=== PATIENT | male | born 1945 | race African-American/Black ===

== ENCOUNTER 2016-09-18 12:28 | Inpatient (IN) | payer OTHER ==
[~2016-09-18] VITALS: Ht 177.8 cm; Wt 93.0 kg
[~2016-09-18 12:28] MED LIST: ATORVASTATIN CA10 MG PO; CORTIZONE-10 PL57 GM TP; ECOTRIN325 MG PO; Ecotrin PO; FLUOXETINE HCL20 MG PO; HYGROTON25 MG PO; Habitrol,Nicoderm CQ TD; LIPITOR80 MG PO; LOPRESSOR50 MG PO; LOSARTAN POTASS50 MG PO; Lopressor PO; NORVASC10 MG PO; PERCOCET 5/31 TABLET PO; PLAVIX75 MG PO; PRINZIDE 20-251 EACH PO; PROZAC20 MG PO; SERTRALINE HCL25 MG PO; VITAMIN D1000 INTUN PO; ZOLOFT100 M1 PO
[2016-09-18 13:14] LABS: HEMATOCRIT 41.6 % (38.0-50.0); MCH 31.6 PG (29.0-34.0); MCHC 34.6 G/DL (30.0-36.0); MCV 91.2 FL (86-99); MEAN PLAT.VOLUME 10.2 uM^3 (9.0-12.4); PLATELET COUNT 159 K/uL (156-360); RBC DIS.WIDTH-CV 12.3 % (11.8-14.6); RBC DIS.WIDTH-SD 40.7 % (39-53); RED BLOOD COUNT 4.56 M/uL (4.00-5.50); WHITE BLOOD COUNT 11.8 K/uL (4.1-10.2)
[2016-09-18 13:28] LABS: CHLORIDE 108 mEq/L (99-109); POTASSIUM 4.2 mEq/L (3.7-5.4); SODIUM 140 mEq/L (136-147)
[2016-09-18 13:29] LABS: GLUCOSE 111 mg/dL (70-99)
[2016-09-18 13:31] LABS: ANION GAP 7 MEQ/L (2-14)
[2016-09-18 13:33] LABS: GFR ESTIMATE (CALCULATED) 32 mL/min/
[2016-09-18 13:34] LABS: TROP-I INTERPRETATION NEGATIVE; TROPONIN-I < 0.01 ng/mL (0.0-0.30); UREA NITROGEN (BUN) 29 mg/dL (9-23)
[2016-09-18 21:13] LABS: TROP-I INTERPRETATION NEGATIVE; TROPONIN-I < 0.01 ng/mL (0.0-0.30)
[2016-09-18 21:25] LABS: D-DIMER ELISA 3.53 mg/L FEU (< 0.57)
[2016-09-18] MEDS ORDERED: LOPRESSOR100 M1 PO (21:57)
[2016-09-18] MEDS ORDERED: LO-DOSE ASPIRIN81 M1 PO (21:57)
[2016-09-18] MEDS ORDERED: ZOLOFT50 MG PO (21:58)
[2016-09-18] MEDS ORDERED: TYLENOL EXTRA500 MG PO (21:58)
[2016-09-18] MEDS ORDERED: HYZAAR 100-21 TABLET PO (21:58)
[2016-09-18] MEDS ORDERED: LOTRIMIN AF24 GM TP (21:59)
[2016-09-18] MEDS ORDERED: CLARITIN,ALAVAR10 MG PO (22:00)
[2016-09-18] MEDS ORDERED: VISINE15 ML BOTH EYES (22:00)
[2016-09-18] MEDS ORDERED: GOLD BOND MED56.6 GM TP (22:01)
[2016-09-18] MEDS ORDERED: ALKA-SELTZER P1 EAC6 PO (22:01)
[2016-09-19 04:03] LABS: TROP-I INTERPRETATION NEGATIVE; TROPONIN-I < 0.01 ng/mL (0.0-0.30)
[2016-09-19 10:21] VITALS: BP 122/78
[2016-09-19 10:57] LABS: TROP-I INTERPRETATION NEGATIVE; TROPONIN-I < 0.01 ng/mL (0.0-0.30)
[2016-09-19 15:58] VITALS: BP 137/80
[2016-09-19 19:24] VITALS: BP 160/103
[2016-09-19 20:14] VITALS: BP 127/74
[2016-09-19 20:17] VITALS: BP 121/76
[2016-09-20 00:48] VITALS: BP 111/73
[2016-09-20 04:46] VITALS: BP 111/69
[2016-09-20 06:53] LABS: ANION GAP 7 MEQ/L (2-14); CHLORIDE 105 MEQ/L (99-109); GFR ESTIMATE (CALCULATED) 28 mL/min/; GLUCOSE 116 mg/dL (70-99); POTASSIUM 4.1 MEQ/L (3.7-5.4); SAMPLE HEMOLYSIS CHECK 0; SAMPLE ICTERIC CHECK 0; SAMPLE LIPEMIA CHECK 0; SODIUM 136 MEQ/L (136-147); UREA NITROGEN (BUN) 39 mg/dL (9-23)
[2016-09-20 06:58] LABS: HEMATOCRIT 36.4 % (38.0-50.0); MCH 31.4 PG (29.0-34.0); MCHC 33.5 G/DL (30.0-36.0); MCV 93.6 FL (86-99); MEAN PLAT.VOLUME 10.7 uM^3 (9.0-12.4); PLATELET COUNT 132 K/uL (156-360); RBC DIS.WIDTH-CV 12.5 % (11.8-14.6); RBC DIS.WIDTH-SD 42.3 % (39-53); RED BLOOD COUNT 3.89 M/uL (4.00-5.50); WHITE BLOOD COUNT 9.4 K/uL (4.1-10.2)
[2016-09-20 08:16] VITALS: BP 115/66
[2016-09-20 12:43] VITALS: BP 120/81
[2016-09-20] MEDS ORDERED: SPIRIVA RESPIMAT4 GM IH (13:04)
[2016-09-20] MEDS ORDERED: ADVAIR HFA120 INHALA IH (13:04)
[2016-09-20] MEDS ORDERED: XARELTO1 EACH PO (13:04)
[2016-09-20] MEDS ORDERED: CEFTIN500 MG PO (13:04)
[2016-09-20] MEDS ORDERED: AZITHROMYCIN500 M1 PO (13:04)
[2016-09-20] MEDS ORDERED: OXYCONTIN10 MG PO (13:04)
== END 2016-09-20 15:18 | disposition home or self-care (01) | DRG 176 ==
LOC: EME 12:28 → EDOF 09-19 00:05 → 5WEST 09-19 07:12
PROVIDERS: Emergency Medicine; Hospitalist
DX: I26.99 Other pulmonary embolism without acute cor pulmonale (principal); J44.0 Chronic obstructive pulmonary disease with (acute) lower respiratory infection; J20.9 Acute bronchitis, unspecified; J44.1 Chronic obstructive pulmonary disease with (acute) exacerbation; R91.8 Other nonspecific abnormal finding of lung field; T17.900A Unspecified foreign body in respiratory tract, part unspecified causing asphyxiation, initial encounter; J98.11 Atelectasis; I12.9 Hypertensive chronic kidney disease with stage 1 through stage 4 chronic kidney disease, or unspecified chronic kidney disease; N18.3 Chronic kidney disease, stage 3 (moderate); I25.10 Atherosclerotic heart disease of native coronary artery without angina pectoris; F32.9 Major depressive disorder, single episode, unspecified; F17.290 Nicotine dependence, other tobacco product, uncomplicated; Z95.5 Presence of coronary angioplasty implant and graft
CPT/HCPCS: 71020; 71100; 71250; 78582; 80048; 84484; 85027; 85379; 87070; 87205; 93005; 93970; 94640; 94640 76; 94760; 94799; 99202; 99281; 99285; A9540; A9567; J0696; J1170; J1650; J2270; J2405; J7050

== ENCOUNTER → 2016-10-28 | Outpatient (CLI) | payer OTHER ==
[~2016-10-28] MED LIST changes: +ADVAIR HFA120 INHALA IH; +ALKA-SELTZER P1 EAC6 PO; +AZITHROMYCIN500 M1 PO; +CEFTIN500 MG PO; +CLARITIN,ALAVAR10 MG PO; +GOLD BOND MED56.6 GM TP; +GOLD BOND MEDI283 G1 TP; +HYZAAR 100-21 TABLET PO; +LO-DOSE ASPIRIN81 M1 PO; +LOPRESSOR100 M1 PO; +LOTRIMIN AF24 GM TP; +OXYCODONE HCL10 MG PO; +OXYCONTIN10 MG PO; +SPIRIVA RESPIMAT4 GM IH; +SPIRIVA1 INHALATI IH; +TYLENOL EXTRA500 MG PO; +VISINE15 ML BOTH EYES; +XARELTO1 EACH PO; +XARELTO20 MG PO; +ZOLOFT50 MG PO
== END | disposition home or self-care (01) ==
LOC: RAD 10-21 08:30
DX: R91.1 Solitary pulmonary nodule (principal)
CPT/HCPCS: 71250

== ENCOUNTER → 2016-10-30 | Outpatient (CLI) | payer OTHER ==
[~2016-10-30] VITALS: Ht 177.8 cm; Wt 90.7 kg
[2016-10-30 15:27] LABS: HEMATOCRIT 38.4 % (38.0-50.0); MCH 30.4 PG (29.0-34.0); MCHC 32.8 G/DL (30.0-36.0); MCV 92.8 FL (86-99); MEAN PLAT.VOLUME 10.1 uM^3 (9.0-12.4); PLATELET COUNT 143 K/uL (156-360); RBC DIS.WIDTH-CV 13.3 % (11.8-14.6); RBC DIS.WIDTH-SD 45.2 % (39-53); RED BLOOD COUNT 4.14 M/uL (4.00-5.50); WHITE BLOOD COUNT 7.3 K/uL (4.1-10.2)
[2016-10-30 15:38] LABS: PTT 28.9 (25-32)
== END | disposition home or self-care (01) ==
LOC: AMB 13:55
PROVIDERS: Internal Medicine Pulmonary Disease
PROC: 0BBG8ZX Excision of Left Upper Lung Lobe, Via Natural or Artificial Opening Endoscopic, Diagnostic (ICD-10-PCS; principal; 2016-10-30)
DX: R91.1 Solitary pulmonary nodule (principal); J84.10 Pulmonary fibrosis, unspecified; Z86.711 Personal history of pulmonary embolism; Z87.891 Personal history of nicotine dependence
CPT/HCPCS: 71010; 76001; 85027; 85610; 85730; 86850; 86900; 86901; 87070; 87116; 87205; 87206; 88108; 88305; J0330; J0360; J1100; J2405; J3010

== ENCOUNTER 2016-11-19 16:44 | Observation (INO) | payer OTHER ==
[~2016-11-19] VITALS: Ht 177.8 cm; Wt 92.5 kg
[2016-11-19 17:27] LABS: HEMATOCRIT 42.6 % (38.0-50.0); MCH 31.4 PG (29.0-34.0); MCHC 33.6 G/DL (30.0-36.0); MCV 93.4 FL (86-99); MEAN PLAT.VOLUME 10.4 uM^3 (9.0-12.4); PLATELET COUNT 153 K/uL (156-360); RBC DIS.WIDTH-CV 13.2 % (11.8-14.6); RBC DIS.WIDTH-SD 43.5 % (39-53); RED BLOOD COUNT 4.56 M/uL (4.00-5.50); WHITE BLOOD COUNT 7.4 K/uL (4.1-10.2)
[2016-11-19 17:39] LABS: CHLORIDE 108 mEq/L (99-109); POTASSIUM 4.4 mEq/L (3.7-5.4); SODIUM 142 mEq/L (136-147)
[2016-11-19 17:41] LABS: GLUCOSE 75 mg/dL (70-99)
[2016-11-19 17:43] LABS: ANION GAP 9 MEQ/L (2-14)
[2016-11-19 17:45] LABS: GFR ESTIMATE (CALCULATED) 33 mL/min/; TROP-I INTERPRETATION NEGATIVE; TROPONIN-I < 0.01 ng/mL (0.0-0.30)
[2016-11-19 17:46] LABS: UREA NITROGEN (BUN) 45 mg/dL (9-23)
[2016-11-19 23:40] VITALS: BP 144/84
[2016-11-20 00:07] LABS: TROP-I INTERPRETATION NEGATIVE; TROPONIN-I < 0.01 ng/mL (0.0-0.30)
[2016-11-20 03:55] VITALS: BP 158/86
[2016-11-20 07:13] LABS: TROP-I INTERPRETATION NEGATIVE; TROPONIN-I < 0.01 ng/mL (0.0-0.30)
[2016-11-20 08:55] VITALS: BP 166/91
== END 2016-11-20 11:48 | disposition home or self-care (01) ==
LOC: EME 16:44 → 5WEST 22:41 → EDOF 22:41 → 5WEST 23:31
PROVIDERS: Hospitalist
DX: J95.811 Postprocedural pneumothorax (principal); R91.1 Solitary pulmonary nodule; I25.10 Atherosclerotic heart disease of native coronary artery without angina pectoris; Z95.5 Presence of coronary angioplasty implant and graft; I12.9 Hypertensive chronic kidney disease with stage 1 through stage 4 chronic kidney disease, or unspecified chronic kidney disease; N18.3 Chronic kidney disease, stage 3 (moderate); F32.9 Major depressive disorder, single episode, unspecified; Z86.711 Personal history of pulmonary embolism; Z79.4 Long term (current) use of insulin
CPT/HCPCS: 71020; 80048; 84484; 85027; 93005; 94640; 99281; 99285; G0378; J1170; J3010; J7030; J7050

== ENCOUNTER → 2016-11-19 | Outpatient (CLI) | payer OTHER ==
[~2016-11-19] MED LIST changes: +LO-DOSE ASPIRIN81 M2 PO
== END | disposition home or self-care (01) ==
LOC: OPR 08:47 → EDSTATUS 09:00 → OPR 09:00
PROC: 0BBG3ZX Excision of Left Upper Lung Lobe, Percutaneous Approach, Diagnostic (ICD-10-PCS; principal; 2016-11-19)
DX: C34.12 Malignant neoplasm of upper lobe, left bronchus or lung (principal); F17.200 Nicotine dependence, unspecified, uncomplicated; J44.9 Chronic obstructive pulmonary disease, unspecified; Z79.82 Long term (current) use of aspirin; Z79.02 Long term (current) use of antithrombotics/antiplatelets; Z79.01 Long term (current) use of anticoagulants; I10 Essential (primary) hypertension; I25.10 Atherosclerotic heart disease of native coronary artery without angina pectoris; Z98.61 Coronary angioplasty status; K21.9 Gastro-esophageal reflux disease without esophagitis; Z83.3 Family history of diabetes mellitus; Z82.49 Family history of ischemic heart disease and other diseases of the circulatory system
CPT/HCPCS: 71010; 77012; 88305; 88341 TC; 88342 TC; J3010

== ENCOUNTER 2016-12-27 11:44 | Day surgery (SDC) | payer OTHER ==
[~2016-12-27] VITALS: Ht 177.8 cm; Wt 88.5 kg
[2016-12-27 12:17] VITALS: BP 137/69
[2016-12-27 12:23] LABS: EOSINOPHIL COUNT 0.3 K/uL (0-0.3); HEMATOCRIT 43.8 % (38.0-50.0); IMMATURE GRANULOCYTE (%) 0.3 % (0.0-0.7); INSTRUMENT ABS NEUTROPHIL CT 4.1 K/uL; LYMPHOCYTE COUNT 1.9 K/uL (1.0-2.8); MCH 30.7 PG (29.0-34.0); MCHC 33.3 G/DL (30.0-36.0); MCV 92.2 FL (86-99); MEAN PLAT.VOLUME 9.9 uM^3 (9.0-12.4); MONOCYTE (%) 8.7 % (3-12); MONOCYTE COUNT 0.6 K/uL (0-0.8); NEUTROPHIL (%) 59.7 % (45-76); NEUTROPHIL COUNT 4.1 K/uL (1.8-6.4); PLATELET COUNT 160 K/uL (156-360); RBC DIS.WIDTH-CV 11.9 % (11.8-14.6); RBC DIS.WIDTH-SD 40.3 % (39-53); RED BLOOD COUNT 4.75 M/uL (4.00-5.50); WHITE BLOOD COUNT 6.9 K/uL (4.1-10.2)
[2016-12-27 12:33] LABS: INTER. NORMALIZED RATIO 0.9; PROTHROMBIN TIME 9.6 (9.2-11.2)
[2016-12-27 12:39] LABS: CHLORIDE 108 mEq/L (99-109); POTASSIUM 3.8 mEq/L (3.7-5.4); SODIUM 142 mEq/L (136-147)
[2016-12-27 12:41] LABS: GLUCOSE 88 mg/dL (70-99)
[2016-12-27 12:42] LABS: ANION GAP 10 MEQ/L (2-14)
[2016-12-27 12:43] LABS: TOTAL BILIRUBIN 0.7 mg/dL (0.0-1.0)
[2016-12-27 12:44] LABS: ALKALINE PHOSPHATASE 63 IU/L (3-129)
[2016-12-27 12:45] LABS: GFR ESTIMATE (CALCULATED) 28 mL/min/
[2016-12-27 12:46] LABS: UREA NITROGEN (BUN) 39 mg/dL (9-23)
[2016-12-27 16:30] VITALS: BP 162/83
[2016-12-27 17:15] VITALS: BP 165/82
== END 2016-12-27 17:30 | disposition home or self-care (01) ==
LOC: SDC 11:44
PROVIDERS: Thoracic Surgery (Cardiothoracic Vascular Surgery)
PROC: 07B74ZX Excision of Thorax Lymphatic, Percutaneous Endoscopic Approach, Diagnostic (ICD-10-PCS; principal; 2016-12-27)
DX: C34.12 Malignant neoplasm of upper lobe, left bronchus or lung (principal); F17.290 Nicotine dependence, other tobacco product, uncomplicated; I25.10 Atherosclerotic heart disease of native coronary artery without angina pectoris; J44.9 Chronic obstructive pulmonary disease, unspecified; I12.9 Hypertensive chronic kidney disease with stage 1 through stage 4 chronic kidney disease, or unspecified chronic kidney disease; N18.9 Chronic kidney disease, unspecified; Z86.711 Personal history of pulmonary embolism; Z79.82 Long term (current) use of aspirin; Z79.01 Long term (current) use of anticoagulants
CPT/HCPCS: 71010; 80053; 85025; 85610; 86850; 86900; 86901; 88305; J0690; J1100; J2250; J2405; J2710; J3010

== ENCOUNTER → 2016-12-31 | Outpatient (CLI) | payer OTHER ==
[2016-12-31 12:22] LABS: BASE EXCESS -1.3 mEq/L (-3 to +3); BICARBONATE 23.7 mEq/L (22-26); METHEMOGLOBIN 1.1 % (0-1.5); PCO2 40 mm Hg (35-45); PO2 77 mm Hg (80-100); pH 7.38 (7.35-7.45)
[2016-12-31 12:24] LABS: COMMENTS - BLOOD GASES +C; FI02 21 %; SITE LB; TOTAL RESP RATE 20 resp/min
== END | disposition home or self-care (01) ==
LOC: RES 11:44
PROVIDERS: Thoracic Surgery (Cardiothoracic Vascular Surgery)
DX: C34.90 Malignant neoplasm of unspecified part of unspecified bronchus or lung (principal)
CPT/HCPCS: 36600; 82803

== ENCOUNTER 2017-01-10 07:28 | Inpatient (IN) | payer OTHER ==
[~2017-01-10] VITALS: Ht 177.8 cm; Wt 92.8 kg
[2017-01-10 08:02] VITALS: BP 138/83
[2017-01-10 09:26] LABS: INTER. NORMALIZED RATIO 0.9; PROTHROMBIN TIME 9.6 (9.2-11.2)
[2017-01-10 16:30] VITALS: BP 143/95
[2017-01-10 17:00] VITALS: BP 149/76
[2017-01-10 17:43] LABS: METH RESISTANT S AUREUS PCR NEGATIVE (NEGATIVE)
[2017-01-10 17:45] LABS: PROBE CHECK PASS; SPECIMEN PROCESSING CONTROL PASS
[2017-01-10 20:00] VITALS: BP 134/97
[2017-01-11] VITALS (13 sets, daily range): BP systolic 104–147; BP diastolic 64–97
[2017-01-11 06:29] LABS: ANION GAP 6 MEQ/L (2-14); CHLORIDE 109 MEQ/L (99-109); GFR ESTIMATE (CALCULATED) 29 mL/min/; GLUCOSE 129 mg/dL (70-99); POTASSIUM 4.7 MEQ/L (3.7-5.4); SAMPLE HEMOLYSIS CHECK 0; SAMPLE ICTERIC CHECK 0; SAMPLE LIPEMIA CHECK 0; SODIUM 137 MEQ/L (136-147); UREA NITROGEN (BUN) 31 mg/dL (9-23)
[2017-01-11 06:40] LABS: HEMATOCRIT 37.9 % (38.0-50.0); MCH 30.8 PG (29.0-34.0); MCHC 32.2 G/DL (30.0-36.0); MCV 95.7 FL (86-99); MEAN PLAT.VOLUME 10.2 uM^3 (9.0-12.4); PLATELET COUNT 167 K/uL (156-360); RBC DIS.WIDTH-SD 42.1 % (39-53); RED BLOOD COUNT 3.96 M/uL (4.00-5.50)
[2017-01-11 06:52] LABS: WHITE BLOOD COUNT 12.6 K/uL (4.1-10.2)
[2017-01-12] VITALS (15 sets, daily range): BP systolic 104–144; BP diastolic 72–99
[2017-01-12 06:01] LABS: HEMATOCRIT 37.2 % (38.0-50.0); MCH 30.7 PG (29.0-34.0); MCHC 32.5 G/DL (30.0-36.0); MCV 94.4 FL (86-99); MEAN PLAT.VOLUME 10.2 uM^3 (9.0-12.4); PLATELET COUNT 146 K/uL (156-360); RBC DIS.WIDTH-CV 11.9 % (11.8-14.6); RBC DIS.WIDTH-SD 40.8 % (39-53); RED BLOOD COUNT 3.94 M/uL (4.00-5.50); WHITE BLOOD COUNT 13.5 K/uL (4.1-10.2)
[2017-01-13] VITALS (7 sets, daily range): BP systolic 94–148; BP diastolic 65–92
[2017-01-13 06:07] LABS: HEMATOCRIT 33.1 % (38.0-50.0); MCH 30.7 PG (29.0-34.0); MCHC 33.2 G/DL (30.0-36.0); MCV 92.5 FL (86-99); MEAN PLAT.VOLUME 10.6 uM^3 (9.0-12.4); PLATELET COUNT 137 K/uL (156-360); RBC DIS.WIDTH-CV 11.7 % (11.8-14.6); RBC DIS.WIDTH-SD 39.7 % (39-53); RED BLOOD COUNT 3.58 M/uL (4.00-5.50); WHITE BLOOD COUNT 12.9 K/uL (4.1-10.2)
[2017-01-13 06:35] LABS: ANION GAP 6 MEQ/L (2-14); CHLORIDE 108 MEQ/L (99-109); GFR ESTIMATE (CALCULATED) 36 mL/min/; GLUCOSE 193 mg/dL (70-99); POTASSIUM 4.2 MEQ/L (3.7-5.4); SAMPLE HEMOLYSIS CHECK 0; SAMPLE ICTERIC CHECK 0; SAMPLE LIPEMIA CHECK 0; SODIUM 136 MEQ/L (136-147); UREA NITROGEN (BUN) 27 mg/dL (9-23)
[2017-01-13 11:56] LABS: BASE EXCESS -4.5 mEq/L (-3 to +3); BICARBONATE 21.1 mEq/L (22-26); CARBOXY HGB 2.3 % (0-5); COMMENTS - BLOOD GASES NEG A+C+; METHEMOGLOBIN 1.5 % (0-1.5); PCO2 40 mm Hg (35-45); PO2 87 mm Hg (80-100); SITE RR; pH 7.33 (7.35-7.45)
[2017-01-13 11:57] LABS: DEVICE HHFNC; O2 FLOW 30 L/MIN; TOTAL RESP RATE 24 resp/min
[2017-01-13 11:58] LABS: FI02 30 %
[2017-01-14] VITALS (14 sets, daily range): BP systolic 100–194; BP diastolic 72–116
[2017-01-14 09:32] LABS: EOSINOPHIL (%) 0 % (0-5); IMMATURE GRANULOCYTE (%) 0.7 % (0.0-0.7); IMMATURE GRANULOCYTE COUNT 0.1 K/uL; INSTRUMENT ABS NEUTROPHIL CT 14.1 K/uL; LYMPHOCYTE COUNT 1.1 K/uL (1.0-2.8); MCH 30.4 PG (29.0-34.0); MCHC 32.1 G/DL (30.0-36.0); MCV 94.8 FL (86-99); MONOCYTE (%) 7.3 % (3-12); MONOCYTE COUNT 1.2 K/uL (0-0.8); NEUTROPHIL (%) 85.3 % (45-76); NEUTROPHIL COUNT 14.1 K/uL (1.8-6.4); NRBC (%) 0.2 /100 WBC (0-0); RBC DIS.WIDTH-CV 11.9 % (11.8-14.6); RBC DIS.WIDTH-SD 40.9 % (39-53); RED BLOOD COUNT 4.01 M/uL (4.00-5.50); WHITE BLOOD COUNT 16.5 K/uL (4.1-10.2)
[2017-01-14 09:50] LABS: ANION GAP 7 MEQ/L (2-14); CHLORIDE 107 MEQ/L (99-109); GFR ESTIMATE (CALCULATED) 41 mL/min/; POTASSIUM 4.4 MEQ/L (3.7-5.4); SAMPLE HEMOLYSIS CHECK 0; SAMPLE ICTERIC CHECK 0; SAMPLE LIPEMIA CHECK 0; SODIUM 139 MEQ/L (136-147); UREA NITROGEN (BUN) 36 mg/dL (9-23)
[2017-01-14 09:51] LABS: GLUCOSE 113 mg/dL (70-99)
[2017-01-14 09:59] LABS: PLATELET COUNT 188 K/uL (156-360)
[2017-01-15] VITALS (13 sets, daily range): BP systolic 108–163; BP diastolic 63–105
[2017-01-15 05:07] LABS: HEMATOCRIT 32.3 % (38.0-50.0); MCHC 32.5 G/DL (30.0-36.0); MCV 92.3 FL (86-99); MEAN PLAT.VOLUME 10.7 uM^3 (9.0-12.4); NRBC (%) 0.2 /100 WBC (0-0); PLATELET COUNT 174 K/uL (156-360); RBC DIS.WIDTH-CV 11.7 % (11.8-14.6); RBC DIS.WIDTH-SD 39.4 % (39-53); WHITE BLOOD COUNT 13.8 K/uL (4.1-10.2)
[2017-01-15 05:19] LABS: CHLORIDE 107 mEq/L (99-109); POTASSIUM 4.9 mEq/L (3.7-5.4); SODIUM 140 mEq/L (136-147)
[2017-01-15 05:20] LABS: GLUCOSE 112 mg/dL (70-99)
[2017-01-15 05:22] LABS: ANION GAP 9 MEQ/L (2-14)
[2017-01-15 05:24] LABS: GFR ESTIMATE (CALCULATED) 36 mL/min/
[2017-01-15 05:25] LABS: UREA NITROGEN (BUN) 42 mg/dL (9-23)
[2017-01-16] VITALS (8 sets, daily range): BP systolic 125–166; BP diastolic 86–113
[2017-01-17 03:30] VITALS: BP 136/84
[2017-01-17 05:43] LABS: HEMATOCRIT 32.2 % (38.0-50.0); MCH 30.8 PG (29.0-34.0); MCHC 32.9 G/DL (30.0-36.0); MCV 93.6 FL (86-99); MEAN PLAT.VOLUME 10.2 uM^3 (9.0-12.4); NRBC (%) 0.5 /100 WBC (0-0); PLATELET COUNT 190 K/uL (156-360); RBC DIS.WIDTH-CV 11.9 % (11.8-14.6); RBC DIS.WIDTH-SD 40.5 % (39-53); RED BLOOD COUNT 3.44 M/uL (4.00-5.50); WHITE BLOOD COUNT 15.3 K/uL (4.1-10.2)
[2017-01-17 06:13] LABS: ANION GAP 5 MEQ/L (2-14); CHLORIDE 106 MEQ/L (99-109); GFR ESTIMATE (CALCULATED) 35 mL/min/; GLUCOSE 104 mg/dL (70-99); POTASSIUM 4.9 MEQ/L (3.7-5.4); SAMPLE HEMOLYSIS CHECK 0; SAMPLE ICTERIC CHECK 0; SAMPLE LIPEMIA CHECK 0; SODIUM 142 MEQ/L (136-147); UREA NITROGEN (BUN) 55 mg/dL (9-23)
[2017-01-17 07:45] VITALS: BP 147/100
[2017-01-17 12:00] VITALS: BP 130/88
[2017-01-17 16:20] VITALS: BP 108/86
[2017-01-17] MEDS ORDERED: Ocean Nasal 0.65% BOTH NARES (17:43)
[2017-01-17] MEDS ORDERED: XARELTO15 MG PO (17:43)
[2017-01-17] MEDS ORDERED: MUCINEX600 MG PO (17:43)
[2017-01-17] MEDS ORDERED: OXYCODONE HCL5 MG PO (17:43)
[2017-01-17] MEDS ORDERED: ADVAIR HFA120 INHALA IH (17:43)
== END 2017-01-17 18:26 | disposition home or self-care (01) | DRG 163 ==
LOC: 2SOUTH → 4WEST 16:10
PROVIDERS: Surgery; Thoracic Surgery (Cardiothoracic Vascular Surgery)
DX: C34.12 Malignant neoplasm of upper lobe, left bronchus or lung (principal); I12.9 Hypertensive chronic kidney disease with stage 1 through stage 4 chronic kidney disease, or unspecified chronic kidney disease; N18.4 Chronic kidney disease, stage 4 (severe); J44.1 Chronic obstructive pulmonary disease with (acute) exacerbation; T17.890A Other foreign object in other parts of respiratory tract causing asphyxiation, initial encounter; J95.821 Acute postprocedural respiratory failure; Z86.711 Personal history of pulmonary embolism; J98.11 Atelectasis; I82.622 Acute embolism and thrombosis of deep veins of left upper extremity; J95.89 Other postprocedural complications and disorders of respiratory system, not elsewhere classified; E11.22 Type 2 diabetes mellitus with diabetic chronic kidney disease; I25.10 Atherosclerotic heart disease of native coronary artery without angina pectoris; J44.9 Chronic obstructive pulmonary disease, unspecified; E78.5 Hyperlipidemia, unspecified; F17.210 Nicotine dependence, cigarettes, uncomplicated; Z95.5 Presence of coronary angioplasty implant and graft; Z96.652 Presence of left artificial knee joint
CPT/HCPCS: 36600; 71010; 71020; 80048; 82803; 85025; 85027; 85610; 86900; 86901; 86920; 87641; 88305; 88309; 88341 TC; 88342 TC; 93931; 94010; 94640; 94640 76; 94667; 94668; 94760; 94799; 97530 GO; 97530 GP; 99202; J0330; J0456; J0690; J1100; J1170; J1644; J1940; J2250; J2405; J2710; J2920; J3010; J7030; J7040; J7050; S0020

== ENCOUNTER 2017-08-19 21:19 | Observation (INO) | payer OTHER ==
[~2017-08-19] VITALS: Ht 177.8 cm; Wt 80.5 kg
[~2017-08-19 21:19] MED LIST changes: +COMPAZINE10 MG PO; +MUCINEX600 MG PO; +OMEPRAZOLE40 M1 PO; +OXYCODONE HCL5 MG PO; +Ocean Nasal 0.65% BOTH NARES; +XARELTO15 MG PO; +ZOFRAN8 MG PO
[2017-08-19 21:47] LABS: HEMATOCRIT 43.8 % (38.0-50.0); MCH 33.2 PG (29.0-34.0); MCHC 34.5 G/DL (30.0-36.0); MCV 96.3 FL (86-99); MEAN PLAT.VOLUME 10.4 uM^3 (9.0-12.4); PLATELET COUNT 150 K/uL (156-360); RBC DIS.WIDTH-CV 12.3 % (11.8-14.6); RBC DIS.WIDTH-SD 44.1 % (39-53); RED BLOOD COUNT 4.55 M/uL (4.00-5.50); WHITE BLOOD COUNT 6.8 K/uL (4.1-10.2)
[2017-08-19 21:57] LABS: CHLORIDE 108 mEq/L (99-109); POTASSIUM 4.3 mEq/L (3.7-5.4); SODIUM 141 mEq/L (136-147)
[2017-08-19 22:00] LABS: GLUCOSE 102 mg/dL (70-99)
[2017-08-19 22:01] LABS: ANION GAP 10 MEQ/L (2-14)
[2017-08-19 22:02] LABS: TOTAL BILIRUBIN 0.7 mg/dL (0.0-1.0)
[2017-08-19 22:03] LABS: ALKALINE PHOSPHATASE 94 IU/L (3-129); GFR ESTIMATE (CALCULATED) 38 mL/min/
[2017-08-19 22:04] LABS: UREA NITROGEN (BUN) 24 mg/dL (9-23)
[2017-08-20 03:52] LABS: HEMATOCRIT 37.3 % (38.0-50.0); MCV 95.6 FL (86-99)
[2017-08-20 05:00] VITALS: BP 102/70
[2017-08-20 09:40] VITALS: BP 102/65
[2017-08-20 09:47] LABS: HEMATOCRIT 38.3 % (38.0-50.0); MCV 95.8 FL (86-99)
[2017-08-20 10:11] LABS: ALKALINE PHOSPHATASE 74 IU/L (3-129); ANION GAP 4 MEQ/L (2-14); CHLORIDE 109 MEQ/L (99-109); GFR ESTIMATE (CALCULATED) 36 mL/min/; GLUCOSE 82 mg/dL (70-99); POTASSIUM 4.4 MEQ/L (3.7-5.4); SAMPLE HEMOLYSIS CHECK 0; SAMPLE ICTERIC CHECK 0; SAMPLE LIPEMIA CHECK 0; SODIUM 140 MEQ/L (136-147); TOTAL BILIRUBIN 0.7 MG/DL (0.0-1.0); UREA NITROGEN (BUN) 22 mg/dL (9-23)
[2017-08-20 11:50] VITALS: BP 111/72
[2017-08-20] MEDS ORDERED: OXYCODONE HCL10 MG PO (14:52)
[2017-08-20] MEDS ORDERED: ADVAIR HFA120 INHALA IH (14:54)
[2017-08-20] MEDS ORDERED: PROAIR HFA8.5 GM IH (14:54)
[2017-08-20] MEDS ORDERED: LO-DOSE ASPIRIN81 M2 PO (14:55)
[2017-08-20 15:27] LABS: HEMATOCRIT 40.3 % (38.0-50.0)
[2017-08-20 16:30] VITALS: BP 125/74
[2017-08-20 20:14] VITALS: BP 132/85
[2017-08-21 00:21] VITALS: BP 131/85
[2017-08-21 00:24] LABS: HEMATOCRIT 36.7 % (38.0-50.0); MCV 96.1 FL (86-99)
[2017-08-21 04:51] VITALS: BP 123/85
[2017-08-21 08:06] LABS: HEMATOCRIT 38.5 % (38.0-50.0); MCH 32.5 PG (29.0-34.0); MCHC 33.8 G/DL (30.0-36.0); MCV 96.3 FL (86-99); MEAN PLAT.VOLUME 10.1 uM^3 (9.0-12.4); PLATELET COUNT 121 K/uL (156-360); RBC DIS.WIDTH-CV 12.4 % (11.8-14.6); RBC DIS.WIDTH-SD 44.1 % (39-53); WHITE BLOOD COUNT 5.9 K/uL (4.1-10.2)
[2017-08-21 08:29] LABS: ANION GAP 2 MEQ/L (2-14); CHLORIDE 113 MEQ/L (99-109); GFR ESTIMATE (CALCULATED) 38 mL/min/; GLUCOSE 95 mg/dL (70-99); POTASSIUM 4.7 MEQ/L (3.7-5.4); SAMPLE HEMOLYSIS CHECK 0; SAMPLE ICTERIC CHECK 0; SAMPLE LIPEMIA CHECK 0; SODIUM 140 MEQ/L (136-147); UREA NITROGEN (BUN) 29 mg/dL (9-23)
[2017-08-21 09:11] VITALS: BP 143/84
== END 2017-08-21 12:07 | disposition home or self-care (01) ==
LOC: EME 21:19 → EDOF 08-20 02:39 → 5WEST 08-20 02:39 → ENRESERV 08-20 02:57 → 5WEST 08-20 03:58 → ENPENDDIS 08-21 → 5WEST 08-21 12:07
PROVIDERS: Internal Medicine; Nurse Practitioner Adult Health
DX: K62.5 Hemorrhage of anus and rectum (principal); I71.4 Abdominal aortic aneurysm, without rupture; C34.10 Malignant neoplasm of upper lobe, unspecified bronchus or lung; I12.9 Hypertensive chronic kidney disease with stage 1 through stage 4 chronic kidney disease, or unspecified chronic kidney disease; N18.3 Chronic kidney disease, stage 3 (moderate); Z86.711 Personal history of pulmonary embolism; I25.10 Atherosclerotic heart disease of native coronary artery without angina pectoris; Z95.5 Presence of coronary angioplasty implant and graft; J44.9 Chronic obstructive pulmonary disease, unspecified; E78.00 Pure hypercholesterolemia, unspecified; R60.0 Localized edema; Z90.2 Acquired absence of lung [part of]; F17.290 Nicotine dependence, other tobacco product, uncomplicated; Z79.01 Long term (current) use of anticoagulants; Z87.891 Personal history of nicotine dependence; Z88.8 Allergy status to other drugs, medicaments and biological substances
CPT/HCPCS: 80048; 80053; 81003; 85014; 85018; 85027; 94640; 94640 76; C9113; G0378; J2270; J7030

== ENCOUNTER 2017-09-04 21:42 | Inpatient (IN) | payer OTHER ==
[~2017-09-04] VITALS: Ht 177.8 cm; Wt 78.4 kg
[~2017-09-04 21:42] MED LIST changes: +ASPERCREME76.5 GM TP; +PROAIR HFA8.5 GM IH
[2017-09-05] VITALS (10 sets, daily range): BP systolic 119–150; BP diastolic 77–105
[2017-09-05 13:22] LABS: MCH 31.3 PG (29.0-34.0); MCHC 33.3 G/DL (30.0-36.0); MEAN PLAT.VOLUME 10.5 uM^3 (9.0-12.4); RBC DIS.WIDTH-CV 12.1 % (11.8-14.6); RBC DIS.WIDTH-SD 42.1 % (39-53); RED BLOOD COUNT 4.47 M/uL (4.00-5.50); WHITE BLOOD COUNT 7.7 K/uL (4.1-10.2)
[2017-09-05 13:32] LABS: PLATELET COUNT 135 K/uL (156-360)
[2017-09-05 13:44] LABS: ANION GAP 6 MEQ/L (2-14); CHLORIDE 109 MEQ/L (99-109); CREATINE KINASE 29 IU/L (1-294); GFR ESTIMATE (CALCULATED) 35 mL/min/ (58.99-99999); GLUCOSE 94 mg/dL (70-99); POTASSIUM 4.1 MEQ/L (3.7-5.4); SAMPLE HEMOLYSIS CHECK 0; SAMPLE ICTERIC CHECK 0; SAMPLE LIPEMIA CHECK 0; SODIUM 140 MEQ/L (136-147); TOTAL CK 29 IU/L (1-294); UREA NITROGEN (BUN) 28 mg/dL (9-23)
[2017-09-05 14:09] LABS: CK-MB 0.9 ng/mL (0.0-4.9)
[2017-09-05 18:07] LABS: METH RESISTANT S AUREUS PCR NEGATIVE (NEGATIVE)
[2017-09-05 18:14] LABS: PROBE CHECK PASS; SPECIMEN PROCESSING CONTROL PASS
[2017-09-06] VITALS: BP 140/83
[2017-09-06 01:00] VITALS: BP 143/86
[2017-09-06 02:30] VITALS: BP 165/97
[2017-09-06 04:00] VITALS: BP 127/81
[2017-09-06 05:38] LABS: HEMATOCRIT 35.9 % (38.0-50.0); MCH 31.4 PG (29.0-34.0); MCHC 33.7 G/DL (30.0-36.0); MCV 93.2 FL (86-99); MEAN PLAT.VOLUME 9.9 uM^3 (9.0-12.4); PLATELET COUNT 116 K/uL (156-360); RBC DIS.WIDTH-CV 11.9 % (11.8-14.6); RBC DIS.WIDTH-SD 40.9 % (39-53); RED BLOOD COUNT 3.85 M/uL (4.00-5.50); WHITE BLOOD COUNT 8.6 K/uL (4.1-10.2)
[2017-09-06 06:14] LABS: ANION GAP 4 MEQ/L (2-14); CHLORIDE 112 MEQ/L (99-109); CREATINE KINASE 32 IU/L (1-294); GFR ESTIMATE (CALCULATED) 36 mL/min/ (58.99-99999); GLUCOSE 99 mg/dL (70-99); POTASSIUM 4.3 MEQ/L (3.7-5.4); SAMPLE HEMOLYSIS CHECK 0; SAMPLE ICTERIC CHECK 0; SAMPLE LIPEMIA CHECK 0; SODIUM 140 MEQ/L (136-147); TOTAL CK 32 IU/L (1-294); UREA NITROGEN (BUN) 25 mg/dL (9-23)
[2017-09-06 08:00] VITALS: BP 136/90
[2017-09-06 10:00] VITALS: BP 125/89
== END 2017-09-06 10:27 | disposition home or self-care (01) | DRG 269 ==
LOC: CANRESERV 21:42 → ENRESERV 21:42 → 2SOUTH 09-05 07:20 → ENRESERV 09-05 07:33 → 2SOUTH 09-05 09:12 → ENRESERV 09-05 12:50 → 4WEST 09-05 15:49
PROVIDERS: Surgery
DX: I71.4 Abdominal aortic aneurysm, without rupture (principal); N28.0 Ischemia and infarction of kidney; I12.9 Hypertensive chronic kidney disease with stage 1 through stage 4 chronic kidney disease, or unspecified chronic kidney disease; N18.9 Chronic kidney disease, unspecified; I42.9 Cardiomyopathy, unspecified; J44.9 Chronic obstructive pulmonary disease, unspecified; I25.10 Atherosclerotic heart disease of native coronary artery without angina pectoris; I08.0 Rheumatic disorders of both mitral and aortic valves; E78.2 Mixed hyperlipidemia; Z95.5 Presence of coronary angioplasty implant and graft; Z79.01 Long term (current) use of anticoagulants; Z79.82 Long term (current) use of aspirin; Z85.118 Personal history of other malignant neoplasm of bronchus and lung; Z86.711 Personal history of pulmonary embolism; Z87.891 Personal history of nicotine dependence; Z92.21 Personal history of antineoplastic chemotherapy; Z92.3 Personal history of irradiation
CPT/HCPCS: 80048; 82550; 82553; 85027; 87641; 93005; 94640; 94640 76; 99202; C1725; C1769; C1894; J0131; J0360; J0690; J1100; J1170; J1644; J2720; J7030

== ENCOUNTER 2017-10-18 09:24 | Emergency (ER) | payer OTHER ==
[~2017-10-18] VITALS: Ht 177.8 cm; Wt 79.9 kg
[2017-10-18] MEDS ORDERED: ONDANSETRON HCL8 MG PO (10:39)
[2017-10-18] MEDS ORDERED: NORCO 10/3251 TABLET PO (10:42)
[2017-10-18 13:02] VITALS: BP 153/106
== END 2017-10-18 13:02 | disposition home or self-care (01) ==
LOC: EME 09:24
DX: R91.8 Other nonspecific abnormal finding of lung field (principal); R07.89 Other chest pain; R21 Rash and other nonspecific skin eruption; R05 Cough; Z85.118 Personal history of other malignant neoplasm of bronchus and lung; Z90.2 Acquired absence of lung [part of]; Z92.21 Personal history of antineoplastic chemotherapy; Z92.3 Personal history of irradiation; Z95.5 Presence of coronary angioplasty implant and graft; Z79.82 Long term (current) use of aspirin; F17.200 Nicotine dependence, unspecified, uncomplicated
CPT/HCPCS: 71046; 93005; 99281; 99284

== ENCOUNTER 2018-02-06 23:56 | Inpatient (IN) | payer OTHER ==
[~2018-02-06] VITALS: Ht 177.8 cm; Wt 75.4 kg
[~2018-02-06 23:56] MED LIST changes: +NORCO 10/3251 TABLET PO; +ONDANSETRON HCL8 MG PO
[2018-02-07 01:11] LABS: HEMATOCRIT 31.2 % (38.0-50.0); HEMOGLOBIN 11.1 G/DL (12.5-16.6); MCH 34.9 PG (29.0-34.0); MCHC 35.6 G/DL (30.0-36.0); MCV 98.1 FL (86-99); PLATELET COUNT 172 K/uL (156-360); RBC DIS.WIDTH-CV 14.9 % (11.8-14.6); RBC DIS.WIDTH-SD 54.5 % (39-53); RED BLOOD COUNT 3.18 M/uL (4.00-5.50); WHITE BLOOD COUNT 6.6 K/uL (4.1-10.2)
[2018-02-07 01:19] LABS: ALBUMIN 3.4 g/dL (3.2-4.8)
[2018-02-07 01:20] LABS: CHLORIDE 111 mEq/L (99-109); POTASSIUM 4.6 mEq/L (3.7-5.4); SODIUM 140 mEq/L (136-147)
[2018-02-07 01:22] LABS: GLUCOSE 85 mg/dL (70-99); TOTAL PROTEIN 6.9 g/dL (6.4-8.3)
[2018-02-07 01:24] LABS: TOTAL BILIRUBIN 0.5 mg/dL (0.0-1.0)
[2018-02-07 01:25] LABS: ALKALINE PHOSPHATASE 71 IU/L (3-129)
[2018-02-07 01:26] LABS: CREATININE 6.9 mg/dL (0.6-1.3); GFR ESTIMATE (CALCULATED) 10 mL/min/ (58.99-99999)
[2018-02-07 01:27] LABS: AST (GOT) 12 IU/L (2-34); UREA NITROGEN (BUN) 70 mg/dL (9-23)
[2018-02-07 01:28] LABS: ALT (GPT) 9 IU/L (3-49)
[2018-02-07 01:29] LABS: LIPASE 10 U/L (1.0-51.0)
[2018-02-07 02:09] LABS: APPEARANCE CLEAR ((CLEAR)); BILIRUBIN NEGATIVE; BLOOD NEGATIVE; COLOR YELLOW ((YELLOW)); GLUCOSE (STRIP) NEGATIVE; KETONES NEGATIVE; LEUKOCYTES NEGATIVE; NITRITE NEGATIVE; PROTEIN (STRIP) 30; SPECIFIC GRAVITY 1.011 (1.000-1.030); UCUL ADDED? NO; UROBILINOGEN 0.2 MG/DL (0.2-1.0)
[2018-02-07 06:38] LABS: CARBON DIOXIDE (BICARBONATE) 16.6 MEQ/L (20-31)
[2018-02-07 08:27] VITALS: BP 147/90
[2018-02-07] MEDS ORDERED: KEFLEX750 MG PO (11:39)
[2018-02-07] MEDS ORDERED: MS CONTIN,ORAMO60 MG PO (11:40)
[2018-02-07] MEDS ORDERED: VALTREX50 MG/ML PO (11:42)
[2018-02-07 13:01] LABS: CHLORIDE 116 MEQ/L (99-109); CREATININE 6.2 MG/DL (0.6-1.3); GFR ESTIMATE (CALCULATED) 12 mL/min/ (58.99-99999); GLUCOSE 80 mg/dL (70-99); POTASSIUM 4.4 MEQ/L (3.7-5.4); SODIUM 144 MEQ/L (136-147); UREA NITROGEN (BUN) 59 mg/dL (9-23)
[2018-02-07 15:56] VITALS: BP 126/63
[2018-02-07 23:53] VITALS: BP 150/86
[2018-02-08 05:26] LABS: BASOPHIL (%) 0.2 % (0-1); EOSINOPHIL COUNT 0.1 K/uL (0-0.3); HEMATOCRIT 27.7 % (38.0-50.0); HEMOGLOBIN 9.3 G/DL (12.5-16.6); IMMATURE GRANULOCYTE (%) 0.3 % (0.0-0.7); LYMPHOCYTE (%) 9.8 % (15-42); LYMPHOCYTE COUNT 0.6 K/uL (1.0-2.8); MCH 33.1 PG (29.0-34.0); MCHC 33.6 G/DL (30.0-36.0); MCV 98.6 FL (86-99); MONOCYTE (%) 12.3 % (3-12); MONOCYTE COUNT 0.7 K/uL (0-0.8); NEUTROPHIL (%) 75.4 % (45-76); NEUTROPHIL COUNT 4.5 K/uL (1.8-6.4); PLATELET COUNT 170 K/uL (156-360); RBC DIS.WIDTH-CV 14.8 % (11.8-14.6); RBC DIS.WIDTH-SD 53.9 % (39-53); RED BLOOD COUNT 2.81 M/uL (4.00-5.50)
[2018-02-08 06:09] LABS: ALBUMIN 2.8 G/DL (3.2-4.8); ALKALINE PHOSPHATASE 49 IU/L (3-129); ALT (GPT) 5 IU/L (3-49); AST (GOT) 8 IU/L (2-34); CHLORIDE 114 MEQ/L (99-109); CREATININE 6.1 MG/DL (0.6-1.3); GFR ESTIMATE (CALCULATED) 12 mL/min/ (58.99-99999); GLUCOSE 82 mg/dL (70-99); POTASSIUM 4.3 MEQ/L (3.7-5.4); SODIUM 142 MEQ/L (136-147); TOTAL BILIRUBIN 0.4 MG/DL (0.0-1.0); TOTAL PROTEIN 5.7 G/DL (6.4-8.3); UREA NITROGEN (BUN) 56 mg/dL (9-23)
[2018-02-08 07:30] VITALS: BP 131/77
[2018-02-08 08:16] LABS: INTACT PARATHYROID HORMONE 1672 pg/mL (10-69)
[2018-02-08 15:54] VITALS: BP 168/85
[2018-02-08 20:33] VITALS: BP 134/82
[2018-02-09 00:13] VITALS: BP 168/87
[2018-02-09 06:04] LABS: BASOPHIL (%) 0.3 % (0-1); EOSINOPHIL (%) 2.4 % (0-5); EOSINOPHIL COUNT 0.1 K/uL (0-0.3); HEMATOCRIT 26.5 % (38.0-50.0); IMMATURE GRANULOCYTE (%) 0.3 % (0.0-0.7); LYMPHOCYTE (%) 10.1 % (15-42); LYMPHOCYTE COUNT 0.6 K/uL (1.0-2.8); MCH 33.1 PG (29.0-34.0); MCV 97.4 FL (86-99); MONOCYTE (%) 10.9 % (3-12); MONOCYTE COUNT 0.7 K/uL (0-0.8); NEUTROPHIL COUNT 4.5 K/uL (1.8-6.4); PLATELET COUNT 166 K/uL (156-360); RBC DIS.WIDTH-CV 14.8 % (11.8-14.6); RBC DIS.WIDTH-SD 52.5 % (39-53); RED BLOOD COUNT 2.72 M/uL (4.00-5.50)
[2018-02-09 06:41] LABS: ALBUMIN 2.6 G/DL (3.2-4.8); ALKALINE PHOSPHATASE 55 IU/L (3-129); ALT (GPT) 6 IU/L (3-49); AST (GOT) 9 IU/L (2-34); CHLORIDE 113 MEQ/L (99-109); CREATININE 5.8 MG/DL (0.6-1.3); GFR ESTIMATE (CALCULATED) 13 mL/min/ (58.99-99999); GLUCOSE 91 mg/dL (70-99); POTASSIUM 4.1 MEQ/L (3.7-5.4); SODIUM 145 MEQ/L (136-147); TOTAL BILIRUBIN 0.4 MG/DL (0.0-1.0); UREA NITROGEN (BUN) 49 mg/dL (9-23)
[2018-02-09 09:01] VITALS: BP 136/77
[2018-02-09 16:26] VITALS: BP 173/84
[2018-02-09 23:42] VITALS: BP 129/75
[2018-02-10 06:30] LABS: BASOPHIL (%) 0.4 % (0-1); EOSINOPHIL (%) 1.9 % (0-5); EOSINOPHIL COUNT 0.1 K/uL (0-0.3); HEMATOCRIT 26.5 % (38.0-50.0); HEMOGLOBIN 9.1 G/DL (12.5-16.6); IMMATURE GRANULOCYTE (%) 0.4 % (0.0-0.7); LYMPHOCYTE (%) 10.6 % (15-42); LYMPHOCYTE COUNT 0.6 K/uL (1.0-2.8); MCH 33.8 PG (29.0-34.0); MCHC 34.3 G/DL (30.0-36.0); MCV 98.5 FL (86-99); MONOCYTE (%) 12.5 % (3-12); MONOCYTE COUNT 0.7 K/uL (0-0.8); NEUTROPHIL (%) 74.2 % (45-76); NEUTROPHIL COUNT 3.9 K/uL (1.8-6.4); PLATELET COUNT 171 K/uL (156-360); RBC DIS.WIDTH-CV 14.8 % (11.8-14.6); RBC DIS.WIDTH-SD 53.6 % (39-53); RED BLOOD COUNT 2.69 M/uL (4.00-5.50); WHITE BLOOD COUNT 5.3 K/uL (4.1-10.2)
[2018-02-10 07:08] LABS: CHLORIDE 113 MEQ/L (99-109); CREATININE 5.4 MG/DL (0.6-1.3); GFR ESTIMATE (CALCULATED) 14 mL/min/ (58.99-99999); GLUCOSE 87 mg/dL (70-99); POTASSIUM 3.8 MEQ/L (3.7-5.4); SODIUM 145 MEQ/L (136-147); UREA NITROGEN (BUN) 47 mg/dL (9-23)
[2018-02-10 08:10] VITALS: BP 151/89
[2018-02-10] MEDS ORDERED: CEPHALEXIN500 MG PO (11:11)
[2018-02-10] MEDS ORDERED: VALACYCLOVIR500 MG PO (11:11)
[2018-02-10] MEDS ORDERED: CALCIUM CARB1 TABLET PO (11:12)
[2018-02-10] MEDS ORDERED: LOVENOX80 MG/0.8 SC (15:12)
== END 2018-02-10 15:50 | disposition home or self-care (01) | DRG 683 ==
LOC: EME 23:56 → EDOF 02-07 05:36 → 5SOUTH 02-07 05:36 → ENRESERV 02-07 05:39 → 5SOUTH 02-07 07:27 → ENPENDDIS 02-10 12:00 → 5SOUTH 02-10 15:50
PROVIDERS: Emergency Medicine; Hospitalist; Internal Medicine Nephrology
DX: N17.9 Acute kidney failure, unspecified (principal); T46.5X5A Adverse effect of other antihypertensive drugs, initial encounter; T50.2X5A Adverse effect of carbonic-anhydrase inhibitors, benzothiadiazides and other diuretics, initial encounter; N05.9 Unspecified nephritic syndrome with unspecified morphologic changes; T45.1X5A Adverse effect of antineoplastic and immunosuppressive drugs, initial encounter; K59.03 Drug induced constipation; T40.605A Adverse effect of unspecified narcotics, initial encounter; C34.12 Malignant neoplasm of upper lobe, left bronchus or lung; R04.0 Epistaxis; K21.9 Gastro-esophageal reflux disease without esophagitis; R33.9 Retention of urine, unspecified; F32.9 Major depressive disorder, single episode, unspecified; F17.200 Nicotine dependence, unspecified, uncomplicated; I25.10 Atherosclerotic heart disease of native coronary artery without angina pectoris; C79.51 Secondary malignant neoplasm of bone; J44.9 Chronic obstructive pulmonary disease, unspecified; E78.5 Hyperlipidemia, unspecified; E83.51 Hypocalcemia; E87.2 Acidosis; I12.9 Hypertensive chronic kidney disease with stage 1 through stage 4 chronic kidney disease, or unspecified chronic kidney disease; N18.4 Chronic kidney disease, stage 4 (severe); D64.9 Anemia, unspecified; G89.4 Chronic pain syndrome; N28.1 Cyst of kidney, acquired; N26.1 Atrophy of kidney (terminal); Z95.5 Presence of coronary angioplasty implant and graft; Z90.2 Acquired absence of lung [part of]; Z79.82 Long term (current) use of aspirin; Z79.01 Long term (current) use of anticoagulants; Z86.711 Personal history of pulmonary embolism
CPT/HCPCS: 36415; 74176; 76770; 80048; 80048 91; 80053; 81003; 82306; 82436; 82803; 83690; 83970; 84133; 84300; 85025; 85027; 94640 76; 99202; 99281; 99285; J0360; J0696; J1644; J1650; J7030; J7050